=== PATIENT | female | born 1950 | race Caucasian/White ===

== ENCOUNTER 2017-02-10 15:28 | Emergency (ER) | payer MEDICAID, OTHER ==
[~2017-02-10] VITALS: Ht 152.4 cm; Wt 82.0 kg
[2017-02-10] MEDS ORDERED: LEVO25TA7 PO (16:38)
[2017-02-10] MEDS ORDERED: ATOR10TA PO (16:38)
[2017-02-10] MEDS ORDERED: ASPI-864 PO (16:39)
[2017-02-10] MEDS ORDERED: LOSA25TA12 PO (16:39)
[2017-02-10] MEDS ORDERED: BACITRACIN ZINC OINT UDPKT TOP ONE (18:15)
[2017-02-10] MEDS ORDERED: TETANUS, DIPHTHERIA, PERTUSSIS VAC/PF 0.5ML (>7YR OLD) IM ONE (18:15)
[2017-02-10 18:37] VITALS: BP 126/59
== END 2017-02-10 18:45 | disposition home or self-care (01) ==
LOC: ER 18:13
DX: S70.01XA Contusion of right hip, initial encounter (principal); S71.051A Open bite, right hip, initial encounter; E03.9 Hypothyroidism, unspecified; I10 Essential (primary) hypertension; Z79.82 Long term (current) use of aspirin; W54.0XXA Bitten by dog, initial encounter; Y93.89 Activity, other specified; Y92.89 Other specified places as the place of occurrence of the external cause; Y99.8 Other external cause status
CPT/HCPCS: 90471; 90715; 99283